=== PATIENT | male | born 1980 | race Two or more races ===

== ENCOUNTER 2024-11-04 00:17 | Emergency (ER) | payer MEDICAID, SELFPAY ==
[2024-11-04 01:05] VITALS: BP 193/118; PULSE 64
[2024-11-04] MEDS: ACETAMINOPHEN 500 MG TABLET 1000 MG PO (01:05)
[2024-11-04] MEDS: hydrALAZINE HCL 25 MG TABLET PO (01:05)
[2024-11-04 15:08] LABS: Strep A Rapid Negative (Negative)
== END 2024-11-04 03:23 | disposition home or self-care (01) ==
LOC: SERX 06:10
PROVIDERS: Emergency Provider Emergency Medicine
DX: K04.7 Periapical abscess without sinus (principal)
CPT/HCPCS: 87651; 99283; A9270